=== PATIENT | female | born 1930 | race Caucasian/White ===

== ENCOUNTER → 2016-12-27 | Outpatient (CLI) | payer MEDICARE, BC ==
[~2016-12-27] MED LIST: ASPIRIN PO; CENTRUM SILVER PO; COUMADIN PO; COUMADIN3 MG PO; CRESTOR PO; DIAZEPAM PO; DIGITEK125 MC1 PO; DIOVAN PO; DIOVAN320 MG PO; FOSAMAX PO; K-DUR10 MEQ PO; KEFLEX500 MG PO; KLONOPIN PO; KROGER PHARMACY; LASIX PO; LEVOTHYROXINE75 MC1 PO; MACROBID100 MG PO; METOPROLOL TAR25 MG PO; MIRAPEX1 MG PO; NEXIUM PO; NITRO DUR; OYSTER CALCIUM500 MG PO; PACERONE PO; PACERONE100 MG PO; PROTONIX PO; SYNTHROID PO; SYNTHROID75 MCG PO; TOPROL XL PO; VALIUM2 MG PO; XARELTO15 MG PO; ZOCOR PO
== END | disposition home or self-care (01) ==
LOC: CSSDAY 10:44
DX: M81.0 Age-related osteoporosis without current pathological fracture (principal); Z79.899 Other long term (current) drug therapy
CPT/HCPCS: 96372; J0897

== ENCOUNTER → 2017-04-13 | Outpatient (CLI) | payer MEDICARE, BC ==
--- NOTE | ~2017-04-13 | CT98 ---
[facility] A Service of [facility] & [facility] RADIOLOGY TEXT RESULTS PATIENT: ELFEGO CASTRO [facility] [birth year] UNIT #: [id number] AGE: [address]: Alexis Paul MD SEX: F ORDER DR: [id number] [facility] [address] [place], [place] [address] [id number] O MR#: [id number] Acc #: [id number] NAME: ELFEGO CASTRO : 1930 SEX: F STUDY DATE/TIME: 04/13/2017 13:11 UNIT: [facility] ROOM: STUDY DESCRIPTION: CT Lumbar Spine Wo Cont Attending Physician: Alexis Paul M.D. Referring Physician: Alexis Paul M.D. Ordering Physician: Alexis Paul M.D. Primary Care Physician: Alexis Paul M.D. MEDICAL IMAGING REPORT This report is preliminary unless electronic signature is present EXAM Lumbar spine CT, no contrast, date of study is 04/13/2017. PROCEDURE Axial unenhanced lumbar CT with multiplanar reformats. This CT exam was performed with one or more of the following radiation dose reduction techniques: automatic exposure control, adjustment of mA and/or kV according to patient size, and iterative reconstruction. COMPARISON CT abdomen and pelvis dated 04/24/2011. HISTORY 2-3 month history of low back pain with right leg pain; no known injury. FINDINGS There is a degenerative scoliosis, but no april- or retrolisthesis. There is no fracture or bone erosion or destruction at any level. The paraspinous soft tissues are unremarkable. At T12-L1, there is a slight disc bulge, but no canal or foraminal stenosis. At L1-L2, there is no canal or foraminal stenosis despite perhaps minimal disc bulge. At L2-L3, there is a disc bulge and mild canal stenosis and borderline right and mild to moderate left foraminal stenosis. At L3-L4, there is mild canal stenosis, with borderline right and mild left foraminal stenosis. At L4-L5, there is moderate degenerative canal stenosis, right side STS. [facility] A Service of [facility] & [facility] RADIOLOGY TEXT RESULTS PATIENT: ELFEGO CASTRO LOCATION: [facility] : [birth year] UNIT #: [id number] AGE: [address]: Alexis Paul MD SEX: F ORDER DR: predominant, with no left but moderate or moderate to severe right foraminal stenosis. At L5-S1, there is no canal stenosis and no foraminal stenosis. IMPRESSION Scoliosis and degenerative change, most prominent at L4-L5, where there is mild to moderate or moderate right-sided predominant canal stenosis and moderate right foraminal stenosis. Dictated by... Jack Cohen M.D. THIS IS AN ELECTRONICALLY VERIFIED REPORT Jack Cohen M.D. at 04/16/2017 10:53 AM DANIEL/jay TD: 04/15/2017 16:53 JOB #: [id number] MEDICAL IMAGING REPORT Page 1 of 1 COPY
== END | disposition home or self-care (01) ==
LOC: CCAT 12:25
DX: M54.5 Low back pain (principal); M47.896 Other spondylosis, lumbar region; M48.06 Spinal stenosis, lumbar region; M41.9 Scoliosis, unspecified
CPT/HCPCS: 72131